=== PATIENT | male | born 2000 | race Caucasian/White ===

== ENCOUNTER 2025-04-17 01:43 | Emergency (ER) | payer MEDICAID ==
[~2025-04-17] VITALS: Ht 177.8 cm; Wt 81.9 kg
--- NOTE | 2025-04-17 01:59 | ELECTROCARDIOGRAPH REPORT ---
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 Dontae Carbone Measurements Intervals [place] Rate: 96 P: 34 NV: 135 QRS: 75 QRSD: 90 T: -23 QT: 325 QTc: 411 Interpretive Statements Sinus rhythm Nonspecific T abnormalities, inferior leads ST elevation, consider anterolateral injury Electronically Signed On 04-18-2025 18:21:[address] Dontae Carbone Please click the below link to view image of tracing.
[2025-04-17 02:04] LABS: MEAN PLATELET VOLUME 7.0 FL (7.4-10.4); RED CELL DISTRIBUTION WIDTH 13.7 % (11.5-14.5)
--- NOTE | 2025-04-17 02:23 | Physician Documentation ---
History of Present Illness ~ Chief Complaint: Chest Wall Pain Stated Complaint: LEFT SIDE PAIN Time Seen by MD: 02:21 Mode of Arrival: POV HPI Patient presents to the emergency room for evaluation of left-sided chest pain. Patient has history of pulmonary embolisms and he is concerned about this. He woke up this evening with tenderness to his left lateral ribs. No one-sided leg pain. His pulmonary embolism was diagnosed several years ago secondary to COVID infection. He is not on blood thinners anymore. He states he has had extensive workup for causes of pulmonary embolism and they never found a cause. Medication Reconciliation Allergies: Coded Allergies: No Known Allergies (Unverified , 04/17/25) Review of Systems ROS All review of systems negative except as per HPI Physical Exam Vital Signs: Temperature: 98.9, Source: Oral, Heart Rate: 96, Respiratory Rate: 21, BP: 130/53, Pulse Oximetry: 96, Weight: 81.900 Oxygen Flow Rate: 0 Physical Exam General: Patient is awake, alert, oriented x4 in no acute distress and well appearing.~ Head: Normocephalic and atraumatic. Eyes: Conjunctival normal. EOMI. PERRL. ENT: Mucous membranes moist. Neck: Supple, trachea is midline. Chest: Clear to auscultation bilaterally without rales, rhonchi, or wheezes. There is no accessory muscle use or retractions. Tenderness to palpation to left lower ribs. No rash Cardiac: RRR without murmurs, gallops, or rubs. Extremities: Normal strength. Normal range of motion. No deformities or edema. No calf tenderness to palpation Progress Results/Orders Results/Orders Orders - MP CHAPARRO MD Chest,Single View (04/17/25 02:08) Monitor (04/17/25 01:49) Saline Lock (04/17/25 01:49) Oxygen (04/17/25 01:49) Hs Troponin I W Calculations (04/17/25 03:49) Hs Troponin I W Calculations (04/17/25 04:49) Ketorolac Trometh 15mg/Ml Vial (Toradol (04/17/25 02:30) Acetaminophen 325mg Tablet (Tylenol Tabl (04/17/25 02:30) Completed Orders - MP CHAPARRO MD Chest,Single View (04/17/25 02:08) Cbc/Diff (04/17/25 01:49) BMP (04/17/25 01:49) PBNP (04/17/25 01:49) Electrocardiogram (04/17/25 01:49) Hs Troponin I W Calculations (04/17/25 01:49) Vital Signs 04/17/25 04/17/25 04/17/25 01:45 02:08 02:15 Temp 98.9 98.9 Pulse 105 96 Resp 18 30 21 B/P (MAP) 139/92 130/53 (78) Pulse Ox 99 96 O2 Flow Rate 0 0 Laboratory Tests Test 04/17/25 01:54 White Blood Count 7.0 Red Blood Count 5.19 Hemoglobin 15.7 Hematocrit 45.2 Mean Corpuscular Volume 87.2 Mean Corpuscular Hemoglobin 30.2 Mean Corpuscular Hemoglobin Concent 34.7 Red Cell Distribution Width 13.7 Platelet Count 165 Mean Platelet Volume 7.0 L Neutrophils (%) (Auto) 82.4 H Lymphocytes (%) (Auto) 5.5 L Monocytes (%) (Auto) 11.9 Eosinophils (%) (Auto) 0.1 Basophils (%) (Auto) 0.1 Neutrophils # (Auto) 5.7 Lymphocytes # (Auto) 0.4 L Monocytes # (Auto) 0.8 Eosinophils # (Auto) 0.0 Basophils # (Auto) 0.0 CBC Comment Sodium Level 131 L Potassium Level 4.3 Chloride Level 97 L Carbon Dioxide Level 27.6 Anion Gap 6 L Blood Urea Nitrogen 15 Creatinine 0.83 Estimated GFR/1.73 m2 > 90 BUN/Creatinine Ratio 18.1 Glucose Level 119 H Calcium Level 9.1 Troponin I High Sensitivity < 4 L Troponin I High Sens Percent Delta Troponin I Hi Sens Absolute Change Pro-B-Type Natriuretic Peptide < 30 Albumin 4.0 Chemistry Comments EKG/XRAY/CT/US/VASC/MRI EKG : Additional Comment EKG interpreted by myself shows time of 0156, rate 96, sinus rhythm, normal axis, nonspecific ST-T changes. Chest X-Ray : Additional Comments Exam: CHEST,SINGLE VIEW CHEST RADIOGRAPH Indication: CP Technique: Single frontal view of the chest was obtained COMPARISON: None FINDINGS: Lines and Tubes: None Lungs: Clear Pleura: No effusion. No pneumothorax. Cardiomediastinal contours: Unremarkable Bones: Unremarkable. Incompletely visualized thoracolumbar spine fixation hardware. IMPRESSION: 1. No acute disease. Medical Decision Making Findings Patient presents to the emergency room for evaluation of left-sided chest pain. Differentials include but are not limited to musculoskeletal pain, pulmonary embolism, ACS, pneumothorax therefore emergent labs and imaging indicated. Chest x-ray is reassuring. Troponins reassuring. Symptoms inconsistent with pulmonary embolism but rather chest wall pain. Patient was saturating well with regular heart rate with no leg calf tenderness. Analgesics discussed. Departure Disposition: HOME / SELF CARE / HOMELESS Impression: Primary Impression: Chest wall pain Condition: Stable Discharge Instructions: Chest Wall Pain Additional Instructions: [id number] ibuprofen and Tylenol may be taken together for pain. Referrals: NO PRIMARY CARE PROVIDER (PCP) Education Educated: Patient Educated regarding: diagnosis, treatment, need for follow up Signature Scribe Signature: No scribe Attestation: The note accurately reflects work and decisions made by me.Mp Chaparro MD 04/17/25 02:36 MP CHAPARRO MD Apr 17, 2025 02:23
[2025-04-17 02:27] LABS: CREATININE 0.83 MG/DL (0.60-1.10); PRO BRAIN NATRIURETIC PEPTIDE < 30 PG/ML (0-125); TOTAL CARBON DIOXIDE 27.6 MMOL/L (24-32); eCRCL 139 ML/MIN; eGFR > 90 ML/MIN
--- NOTE | 2025-04-17 02:31 | RADIOLOGY REPORT ---
CHEST RADIOGRAPH Indication: CP Technique: Single frontal view of the chest was obtained COMPARISON: None FINDINGS: Lines and Tubes: None Lungs: Clear Pleura: No effusion. No pneumothorax. Cardiomediastinal contours: Unremarkable Bones: Unremarkable. Incompletely visualized thoracolumbar spine fixation hardware. IMPRESSION: 1. No acute disease.
[2025-04-17] MEDS: ketorolac trometh 15mg/ml vial 15 MG/ML ML IV ONE (03:06)
[2025-04-17 03:18] VITALS: BP 136/83; PULSE 95; RESP 19; TEMP 98.9; O2SAT 98
== END 2025-04-17 03:20 | disposition home or self-care (01) ==
LOC: ER 01:45
DX: R07.89 Other chest pain (principal); Z86.711 Personal history of pulmonary embolism
CPT/HCPCS: 36415; 71045; 80048; 83880; 84484; 85025; 93005; 96374; 99285; J1885